=== PATIENT | male | born 1950 | race Caucasian/White ===

== ENCOUNTER 2021-01-19 12:18 | Outpatient (REF) | payer MEDICARE, OTHER, SELFPAY ==
[2021-01-19 14:25] LABS: ALT 38 U/L (16-63); AST 28 U/L (15-37); Albumin 3.9 g/dL (3.4-5.0); Alkaline Phosphatase 117 U/L (46-116); Bilirubin, Direct 0.2 mg/dL (0.0-0.2); Bilirubin, Total 0.9 mg/dL (0.2-1.0); Total Protein 6.6 g/dL (6.4-8.2)
[2021-01-19 14:45] LABS: Calculated LDL 67 mg/dL (<100); Cholesterol 140 mg/dL (<200); HDL Cholesterol 56 mg/dL (40-60); Triglyceride 86 mg/dL (<150)
== END 2021-01-19 12:19 | disposition home or self-care (01) ==
LOC: NCHCN 12:18
PROVIDERS: Visit Provider Family Medicine
DX: E78.5 Hyperlipidemia, unspecified (principal)
CPT/HCPCS: 80061; 80076

== ENCOUNTER 2021-10-29 15:37 | Outpatient (REF) | payer MEDICARE, SELFPAY ==
[2021-10-30 11:34] LABS: COVID-19 RT-PCR UVMMC Result Negative (Negative)
== END 2021-10-29 15:38 | disposition home or self-care (01) ==
LOC: LBN 15:37
PROVIDERS: Visit Provider Nurse Practitioner Family
DX: Z20.822 Contact with and (suspected) exposure to COVID-19 (principal); R05.8 Other specified cough
CPT/HCPCS: U0003

== ENCOUNTER 2021-12-13 20:53 | Outpatient (REF) | payer MEDICARE, SELFPAY ==
[2021-12-13 19:54] LABS: ALT 43 U/L (16-63); AST 37 U/L (15-37); Albumin 3.8 g/dL (3.4-5.0); Alkaline Phosphatase 95 U/L (46-116); Anion Gap 7.5 mmol/L (3-11); BUN 13 mg/dL (7-18); Bilirubin, Total 0.8 mg/dL (0.2-1.0); CO2 29.5 mmol/L (21.0-32.0); Calcium 8.8 mg/dL (8.5-10.1); Calculated LDL 46 mg/dL (<100); Chloride 105 mmol/L (98-107); Cholesterol 119 mg/dL (<200); Estimated GFR 80.97 (mL/min/1.73m2); Glucose 85 mg/dL (74-106); HDL Cholesterol 59 mg/dL (40-60); Potassium 5.6 mmol/L (3.5-5.1); Sodium 142 mmol/L (136-145); Total Protein 6.5 g/dL (6.4-8.2); Triglyceride 70 mg/dL (<150)
[2021-12-15 05:42] LABS: Vitamin D 25 Total 60.1 ng/mL (30-100)
== END 2021-12-13 20:54 | disposition home or self-care (01) ==
LOC: NCHCN 20:53
PROVIDERS: Visit Provider Family Medicine
DX: E78.5 Hyperlipidemia, unspecified (principal); E55.9 Vitamin D deficiency, unspecified; R03.0 Elevated blood-pressure reading, without diagnosis of hypertension
CPT/HCPCS: 80053; 80061; 82306

== ENCOUNTER 2021-12-22 14:51 | Outpatient (REF) | payer MEDICARE, SELFPAY ==
[2021-12-22 19:07] LABS: Potassium 4.8 mmol/L (3.5-5.1)
== END 2021-12-22 14:52 | disposition home or self-care (01) ==
LOC: NCHCN 14:51
PROVIDERS: Visit Provider Family Medicine
DX: E87.5 Hyperkalemia (principal)
CPT/HCPCS: 84132

== ENCOUNTER 2022-11-17 19:04 | Outpatient (REF) | payer MEDICARE, SELFPAY ==
[2022-11-17 14:56] LABS: Abs Immature Grans 0.01 10^3/uL (0.0-0.06); Absolute Basophil Count 0.02 10^3/uL (0.0-0.2); Absolute Eosinophil Count 0.37 10^3/uL (0.0-0.7); Absolute Lymphocyte Count 2.11 10^3/uL (1.2-3.4); Absolute Neutrophil Count 2.27 10^3/uL (1.2-6.7); Basophils % 0.4; HCT 41.2 % (40.0-50.0); HGB 13.4 g/dL (13.5-17.5); Immature Grans % 0.2; MCH 26.2 pg (27.0-33.0); MCHC 32.5 % (32.0-36.0); MCV 81 fL (80-95); MPV 9.9 fL (8.0-11.0); Monocytes % 9.5; Neutrophils % 42.9; Platelet Count 214 10^3/uL (130-400); RBC 5.12 10^6/uL (4.36-5.78); RDW 17.3 % (11.8-14.1); RDW-SD 50.7 fL; Reticulocyte 1.1 % (0.5-2.4); WBC 5.28 10^3/uL (4.4-10.8)
[2022-11-17 14:58] LABS: Iron 92 ug/dL (65-175); Total Iron Binding Capacity 366 ug/dL (250-450); Transferrin Sat 25 % (20-55)
[2022-11-17 15:10] LABS: Anion Gap 6.7 mmol/L (3-11); BUN 15 mg/dL (7-18); CO2 30.3 mmol/L (21.0-32.0); CREATININE 1.1 mg/dL (0.70-1.30); Chloride 102 mmol/L (98-107); Estimated GFR 71.77 (mL/min/1.73m2); Ferritin 25 ng/mL (26-388); Glucose 82 mg/dL (74-106); Potassium 4.5 mmol/L (3.5-5.1); Sodium 139 mmol/L (136-145)
== END 2022-11-17 19:05 | disposition home or self-care (01) ==
LOC: NCHCN 19:04
PROVIDERS: PCP Family Medicine; Visit Provider Family Medicine
DX: D50.9 Iron deficiency anemia, unspecified (principal)
CPT/HCPCS: 80048; 82728; 83540; 83550; 85025; 85045

== ENCOUNTER 2023-03-22 13:04 | Outpatient (REF) | payer MEDICARE, SELFPAY ==
[2023-03-22 14:47] LABS: HCT 46.5 % (40.0-50.0); HGB 15.4 g/dL (13.5-17.5); MCH 28.6 pg (27.0-33.0); MCHC 33.1 % (32.0-36.0); MCV 86 fL (80-95); MPV 9.4 fL (8.0-11.0); Platelet Count 236 10^3/uL (130-400); RBC 5.39 10^6/uL (4.36-5.78); RDW 12.9 % (11.8-14.1); RDW-SD 40.1 fL; WBC 5.35 10^3/uL (4.4-10.8)
[2023-03-22 15:03] LABS: Iron 110 ug/dL (65-175); Total Iron Binding Capacity 411 ug/dL (250-450); Transferrin Sat 27 % (20-55)
[2023-03-22 15:31] LABS: Ferritin 65 ng/mL (26-388)
== END 2023-03-22 13:05 | disposition home or self-care (01) ==
LOC: NCHCN 13:04
PROVIDERS: PCP Family Medicine; Visit Provider Family Medicine
DX: D50.9 Iron deficiency anemia, unspecified (principal)
CPT/HCPCS: 85027; 82728; 83540; 83550

== ENCOUNTER 2025-01-27 15:15 | Outpatient (REF) | payer MEDICARE, OTHER, SELFPAY ==
[2025-01-27 17:47] LABS: ALT 33 U/L (16-63); AST 21 U/L (15-37); Albumin 3.8 g/dL (3.4-5.0); Alkaline Phosphatase 105 U/L (46-116); Anion Gap 8.2 mmol/L (3-11); BUN 9 mg/dL (7-18); Bilirubin, Total 0.7 mg/dL (0.2-1.0); CO2 27.8 mmol/L (21.0-32.0); Calcium 8.9 mg/dL (8.5-10.1); Calculated LDL 113 mg/dL (<100); Chloride 102 mmol/L (98-107); Cholesterol 182 mg/dL (<200); Estimated GFR 79.47 (mL/min/1.73m2); Glucose 90 mg/dL (74-106); HDL Cholesterol 55 mg/dL (>or=40); Potassium 4.9 mmol/L (3.5-5.1); Sodium 138 mmol/L (136-145); Total Protein 6.6 g/dL (6.4-8.2); Triglyceride 72 mg/dL (<150)
== END 2025-01-27 15:16 | disposition home or self-care (01) ==
LOC: NCHCN 15:15
PROVIDERS: PCP Family Medicine; Visit Provider Family Medicine
DX: E78.5 Hyperlipidemia, unspecified (principal); R03.0 Elevated blood-pressure reading, without diagnosis of hypertension
CPT/HCPCS: 80053; 80061